=== PATIENT | female | born 1965 | race Hispanic/Latino ===

== ENCOUNTER 2017-12-29 08:02 | Outpatient (CLI) | payer OTHER ==
--- NOTE | 2017-12-29 09:22 | XRay Report ---
Bilateral knees: Standing views were obtained. There is good bone alignment and good preservation of the joint spaces bilaterally. Small articular spurs are identified involving the medial compartment bilaterally. The articular surfaces are smooth. The bones are well-mineralized. No effusions and no swelling noted. Impression: Mild bilateral degenerative medial joint compartment changes.
== END 2017-12-29 08:03 | disposition home or self-care (01) ==
LOC: SPVIMAG 08:02
PROVIDERS: ATTEND Orthopaedic Surgery Sports Medicine
DX: M17.0 Bilateral primary osteoarthritis of knee (principal); M25.861 Other specified joint disorders, right knee; M25.862 Other specified joint disorders, left knee